=== PATIENT | male | born 1995 | race Caucasian/White ===

== ENCOUNTER 2016-07-30 12:16 | Emergency (ER) | payer BC ==
[~2016-07-30] VITALS: Ht 188 cm; Wt 103.2 kg
[~2016-07-30 12:16] MED LIST: ALLDSR/24 PO; SNGCH5 PO
[2016-07-30 12:22] VITALS: BP 129/88; PULSE 91; TEMP 36.6; O2SAT 97; Ht 188 cm; Wt 103.2 kg
[2016-07-30] MEDS ORDERED: XYLOCAINE 1%/SOD BICARB 20 ML VIAL INFIL ONE (12:39)
--- NOTE | 2016-07-30 13:05 | EMERGENCY ROOM VISIT NOTE ---
ED Visit Note First contact with patient: 12:25 CHIEF COMPLAINT: Left second finger laceration HISTORY OF PRESENT ILLNESS: Patient is a [id number] 21-year-old white male who presents to emergency department for evaluation of a laceration to his left second finger that he sustained one hour ago. He was using an [employer] blade for an architectural class project when he accidentally cut the left second finger. He tried to apply bandage and Steri-Strips but was unable to get the bleeding stopped. He notes a throbbing, 6/10 pain in the tip of the finger. No numbness or weakness. REVIEW OF SYSTEMS: NEUROLOGICAL: No headache, change in mental status, weakness, numbness, or dizziness. GENERAL: No fever or chills, easy fatigue, loss of appetite, or significant weight change. PMH: The patient is healthy; there is no significant medical or surgical history. Tetanus is up-to-date. SOCIAL HISTORY: Patient lives at home. College student. PHYSICAL EXAM: Vital Signs: Reviewed Nurse's notes. There is a 1.5 cm long laceration on the radial aspect of the left second fingertip, adjacent to the nail. The edges gape apart with traction. There is no foreign material in the wound and it looks clean. There is no bleeding. No deep structures such as tendons or nerves are seen in the base of the wound. Extension of the finger is full and strong. EMERGENCY DEPARTMENT COURSE: Using sterile technique, saline and Betadine cleansing, and 1% lidocaine anesthesia, the laceration was repaired with 4, 5-0 nylon sutures. I do not suspect nerve, vascular or tendinous injury. Current/Historical Medications Scheduled Fexofenadine-Pseudoephedrine (Marilu-D 24 Hour Allergy), 1 TAB PO DAILY Allergies Uncoded Allergies: DUST MITE (Allergy, Mild, 01/21/08) Vital Signs Date Time Temp Pulse Resp B/P Pulse Ox O2 Delivery O2 Flow Rate FiO2 07/30/16 12:22 36.6 91 18 129/88 97 Room Air Departure Information Impression Primary Impression: Laceration of finger Referrals No Doctor, Assigned (PCP) Patient Instructions [facility] Additional Instructions Keep wound clean and dry. Do not allow any crusting or dried blood to accumulate on sutures. If this occurs, use a 1:1 solution of hydrogen peroxide/ water on a Q-tip to clean the wound. Use an antibiotic ointment for 3-4 days, then let wound dry. Suture removal in 10-12 days. Return sooner for any signs of infection (increasing redness, swelling, drainage). Wear the metal finger splint until the digital block wears off and sensation and motion return to normal. Ice and elevate for swelling and pain. Ibuprofen 600 mg and Tylenol 1000 mg every 6 hrs for pain.
[2016-07-30] MEDS ORDERED: FEXO1TAB58 PO (13:08)
== END 2016-07-30 13:10 | disposition home or self-care (01) ==
LOC: C.EDB 12:17 → C.EDD 13:10
DX: S61.211A Laceration without foreign body of left index finger without damage to nail, initial encounter (principal); W26.0XXA Contact with knife, initial encounter; Y92.89 Other specified places as the place of occurrence of the external cause